=== PATIENT | female | born 1970 | race Caucasian/White ===

== ENCOUNTER 2018-12-22 13:30 | Emergency (ER) | payer SELFPAY ==
[~2018-12-22] VITALS: Ht 162.6 cm; Wt 84.4 kg
[2018-12-22 13:40] VITALS: BP 98/57
--- NOTE | 2018-12-22 13:50 | NUR ---
BIB SELF. AAOX 4 C/O GENERALIZED LOWER ABD PAIN X 1 DAY. DENIES N/V, FEVER, SOB, TRAUMA. PT DENIES TAKING OTC MEDS FOR PAIN. PT STATES THAT SHE HAS A HISTORY OF OVARY CYST. PT AMBULATED WITH STEADY GAIT. ER TO EVALUATE PT.
--- NOTE | 2018-12-22 14:01 | NUR ---
DR COHEN AT BEDSIDE FOR PT EVALUATION
--- NOTE | 2018-12-22 14:15 | NUR ---
TEST INSPECTION ENGINEER AT BEDSIDE.
[2018-12-22 14:43] LABS: APPEARANCE,URINE HAZY (CLEAR); BILIRUBIN,URINE NEGATIVE (NEGATIVE); BLOOD, URINE NEGATIVE (NEGATIVE); COLOR,URINE YELLOW (YELLOW); LEUKOCYTE ESTERASE ,URINE 1+ (NEGATIVE); NITRITE, URINE NEGATIVE (NEGATIVE); UGLUCOSE NEGATIVE (NEGATIVE)
[2018-12-22 14:52] LABS: RBC,URINE NONE SEEN /HPF (0-5); WBC,URINE 0-5 /HPF (0-5)
[2018-12-22 14:53] LABS: URIC ACID CRYSTALS,URINE 0-10 /HPF (None Seen)
--- NOTE | 2018-12-22 15:00 | NUR ---
PT LAYING DOWN. AAO X4, FULL CLEAR SPEECH. EVEN AND UNLABORED BREATHING ,NO SIGNS AND SYMPTOMS OF DISTRESS NOTED.
--- NOTE | 2018-12-22 16:00 | NUR ---
PT LAYING DOWN. AAO X4, FULL CLEAR SPEECH. EVEN AND UNLABORED BREATHING ,NO SIGNS AND SYMPTOMS OF DISTRESS NOTED.
[2018-12-22 16:40] VITALS: BP 104/64
--- NOTE | 2018-12-22 16:40 | NUR ---
Patient discharged with v/s stable. Written and verbal after care instructions given and explained. Patient alert, oriented and verbalized understanding of instructions. Ambulatory with steady gait. All questions addressed prior to discharge. ID band removed. Patient advised to follow up with PMD. Rx of IBUPROFEN 600 MG given. Patient educated on indication of medication including possible reaction and side effects. Opportunity to ask questions provided and answered.
== END 2018-12-22 16:40 | disposition home or self-care (01) ==
LOC: MED 13:30
DX: R10.31 Right lower quadrant pain (principal); Z87.42 Personal history of other diseases of the female genital tract
CPT/HCPCS: 74176; 76856; 81001; 81025; 82948; 87086; 93976; 99284; Q0092

== ENCOUNTER 2019-04-21 18:28 | Emergency (ER) | payer OTHER ==
[~2019-04-21] VITALS: Ht 162.6 cm; Wt 93.0 kg
[2019-04-21 18:42] VITALS: BP 132/76
--- NOTE | 2019-04-21 18:50 | NUR ---
PT AMBULATED TO ED BED 05
--- NOTE | 2019-04-21 19:03 | NUR ---
48 Y/O F C/O LEFT LEG CRAMPS X 3 DAYS. PT DENIES ANY FEVER/CHILLS/DIAHREA. PT STATES THIS HAS HAPPENED IN THE PAST, AND SHE WAS ADVISED TO DRINK MORE WATER. PT IS NOT IN PAIN AT THIS TIME. PT POSITIONED FOR COMFORT, BED LOWERED, SIDE RAIL X [address] SARAH
--- NOTE | 2019-04-21 19:19 | NUR ---
REPORT RECEIVED FROM EZIO GARCIA. ASSUMED CARE AT THIS TIME. PT SEATED UPRIGHT IN BED. BEDRAIL X1 UP. WILL CONTINUE TO MONITOR.
--- NOTE | 2019-04-21 19:19 | NUR ---
TRANSFER OF PT CARE TO EZIO GIBSON
[2019-04-21 19:48] LABS: BASOPHILS % (AUTO) 0.2 % (0.0-2.0); EOSINOPHILS # (AUTO) 0.1 K/uL (0-0.4); EOSINOPHILS % (AUTO) 1.6 % (0.0-4.0); HEMATOCRIT 39.2 % (36-48); HEMOGLOBIN 13.3 g/dL (12.0-16.0); LYMPHOCYTES # (AUTO) 3.1 K/uL (2.5-16.5); LYMPHOCYTES % (AUTO) 40.2 % (20.5-51.1); MEAN CORPUSCULAR HEMOGLOBIN 31 pg (27-31); MEAN CORPUSCULAR HGB CONC 34 g/dL (33-37); MEAN CORPUSCULAR VOLUME 90.9 fL (80-94); MONOCYTES # (AUTO) 0.5 K/uL (0.8-1.0); MONOCYTES % (AUTO) 5.8 % (1.7-9.3); NEUTROPHILS # (AUTO) 4.1 K/uL (1.8-7.7); NEUTROPHILS % (AUTO) 52.2 % (42.2-75.2); PLATELET COUNT (AUTO) 203 K/uL (140-450); RED BLOOD CELL COUNT(AUTO) 4.31 MIL/uL (4.20-5.40); RED CELL DISTRIBUTION WIDTH 13.5 % (11.6-13.7); WHITE BLOOD COUNT (AUTO) 7.8 K/uL (4.8-10.8)
[2019-04-21 20:02] LABS: ANION GAP 11.4 (8-16); CARBON DIOXIDE 29.3 mmol/L (21-32); CREATININE 0.6 mg/dL (0.6-1.3); POTASSIUM 3.7 mmol/L (3.5-5.1)
--- NOTE | 2019-04-21 20:15 | NUR ---
NEHEMIAH JOHNSON AT BEDSIDE EVAULTING PT.
[2019-04-21 20:37] VITALS: BP 132/76
--- NOTE | 2019-04-21 20:37 | NUR ---
Patient discharged with v/s stable. Written and verbal after care instructions given and explained. Patient alert, oriented and verbalized understanding of instructions. Ambulatory with steady gait. All questions addressed prior to discharge. ID band removed. Patient advised to follow up with PMD. Rx of B COMPLEX WITH VIT. C, AND IBUPROFEN WAS given. Patient educated on indication of medication including possible reaction and side effects. Opportunity to ask questions provided and answered. PT STATED HER PAIN DECREASED TO 3/10 AND HER LEG CRAMPING WAS MINIMAL PRIOR TO D/C
== END 2019-04-21 20:37 | disposition home or self-care (01) ==
LOC: MED 18:28
DX: M79.662 Pain in left lower leg (principal)
CPT/HCPCS: 36415; 80048; 82948; 85025; 99283

== ENCOUNTER 2019-12-29 20:06 | Emergency (ER) | payer OTHER ==
[~2019-12-29] VITALS: Ht 162.6 cm; Wt 94.3 kg
[2019-12-29 20:29] VITALS: BP 117/83
--- NOTE | 2019-12-29 20:29 | NUR ---
49 Y/O FEMALE PRESENTED TO ED C/O LT LOWER BACK PAIN X 3 HRS. PT STATES SHE WAS CLEANING HER ROOM AND LIFTED HER MATTRESS AND FELT LIKE SHE PULLED A MUSCLE IN HER BACK. PT RATES PAIN 8/10 , THROBBING SENSATION. NO OBSERVED REDNESS OR SWELLING ON LOWER BACK.PT HAS NOT TAKEN ANY MEDICATION AT THIS TIME FOR THE PAIN. PT DENIES N/V/D/FEVER/CP/SOB. PT RR EVEN AND UNLABORED, VSS. PT SECONDARY C/O OF LICE. PT STATES HER DAUGHTER RECENTLY HAS LICE AND SHE NOW BELIEVES SHE HAS IT. PT STATES LICER PAIN 10/10 ON PAIN SCALE. PT RESTING IN BED, LOCKED AND IN LOWEST POSITION , HOB ELEVATED, SIDE RAIL X2 FOR PT SAFETY. NO ACUTE DISTRESS NOTED AT THIS TIME. PMH: DEPRESSION NKA
--- NOTE | 2019-12-29 20:37 | NUR ---
PT TAKEN TO BED 9
--- NOTE | 2019-12-29 20:39 | NUR ---
Dr. Gaona examining patient.
[2019-12-29] MEDS ORDERED: KETOROLAC 60 MG/2 ML VIAL IM ONE (20:45)
--- NOTE | 2019-12-29 20:48 | NUR ---
PT TAKEN TO RADIOLOGY
--- NOTE | 2019-12-29 20:57 | NUR ---
PT RETURN FROM XRAY
[2019-12-29 21:40] VITALS: BP 117/83
--- NOTE | 2019-12-29 21:40 | NUR ---
Patient discharged with v/s stable. Written and verbal after care instructions given and explained. Patient alert, oriented and verbalized understanding of instructions. Ambulatory with steady gait. All questions addressed prior to discharge. ID band removed. Patient advised to follow up with PMD. Rx of motrin, permethrin given. Patient educated on indication of medication including possible reaction and side effects. Opportunity to ask questions provided and answered.
== END 2019-12-29 21:40 | disposition home or self-care (01) ==
LOC: MED 20:06
DX: S39.012A Strain of muscle, fascia and tendon of lower back, initial encounter (principal); B85.0 Pediculosis due to Pediculus humanus capitis; Z90.722 Acquired absence of ovaries, bilateral; X58.XXXA Exposure to other specified factors, initial encounter; Y93.89 Activity, other specified; Y92.89 Other specified places as the place of occurrence of the external cause; Y99.8 Other external cause status
CPT/HCPCS: 72100; 96372; 99283; J1885

== ENCOUNTER 2020-01-03 19:06 | Emergency (ER) | payer OTHER ==
[~2020-01-03] VITALS: Ht 162.6 cm; Wt 90.7 kg
[2020-01-03 19:10] VITALS: BP 111/74
--- NOTE | 2020-01-03 19:20 | NUR ---
PT AMBULATED TO ER BED 1
--- NOTE | 2020-01-03 19:29 | NUR ---
49 Y/O FEMALE PRESENTS TO ER WITH C/O LEFT FOOT CRAMPS X 1 DAY. 9/10 PAIN. PT STATES LEFT FOOT CRAMPING AT REST, OR WHILE SITTING. CRAMPS ARE ALLEVIATED WHEN SHE AMBULATES. ALSO STATES SHE HAS OCCASIONAL BILATERAL HAND CRAMPING. DENIES INJURY OR TRAUMA TO FOOT. DENIES NAUSEA, VOMITING, DIARRHEA, SOB, COUGH, FEVER. STATES SHE WAS COVID + LAST MONTH, BUT WAS RETESTED AND IS NOW NEGATIVE. DENIES TAKING MEDS BEFORE COMING TO ER. B, LMP X 4YRS AGO. NKDA PMH: DM
--- NOTE | 2020-01-03 19:35 | NUR ---
NEHEMIAH SOLIS WITH PT
[2020-01-03] MEDS ORDERED: NACL 0.9% 1,000 ML IV ONE (19:40)
[2020-01-03 20:00] LABS: BASOPHILS % (AUTO) 0.3 % (0.0-2.0); EOSINOPHILS # (AUTO) 0.2 K/uL (0-0.4); EOSINOPHILS % (AUTO) 2.4 % (0.0-4.0); HEMATOCRIT 38.9 % (36-48); LYMPHOCYTES # (AUTO) 3.2 K/uL (2.5-16.5); LYMPHOCYTES % (AUTO) 42.8 % (20.5-51.1); MEAN CORPUSCULAR HEMOGLOBIN 30 pg (27-31); MEAN CORPUSCULAR HGB CONC 34 g/dL (33-37); MEAN CORPUSCULAR VOLUME 89.2 fL (80-94); MONOCYTES # (AUTO) 0.5 K/uL (0.8-1.0); MONOCYTES % (AUTO) 7.1 % (1.7-9.3); NEUTROPHILS # (AUTO) 3.6 K/uL (1.8-7.7); NEUTROPHILS % (AUTO) 47.4 % (42.2-75.2); PLATELET COUNT (AUTO) 221 K/uL (140-450); RED BLOOD CELL COUNT(AUTO) 4.36 MIL/uL (4.20-5.40); RED CELL DISTRIBUTION WIDTH 14.3 % (11.6-13.7); WHITE BLOOD COUNT (AUTO) 7.6 K/uL (4.8-10.8)
[2020-01-03 20:14] LABS: ALBUMIN 3.9 g/dL (3.4-5.0); ANION GAP 13.6 (8-16); CARBON DIOXIDE 28.9 mmol/L (21-32); CREATININE 0.8 mg/dL (0.6-1.3); POTASSIUM 3.5 mmol/L (3.5-5.1); TOTAL BILIRUBIN 0.6 mg/dL (0.0-1.0)
--- NOTE | 2020-01-03 20:34 | NUR ---
Dr. Forrest examining patient.
[2020-01-03 20:40] VITALS: BP 111/74
== END 2020-01-03 20:40 | disposition home or self-care (01) ==
LOC: MED 19:06
DX: R25.2 Cramp and spasm (principal); M79.672 Pain in left foot; E11.9 Type 2 diabetes mellitus without complications
CPT/HCPCS: 36415; 80053; 85025; 96360; 99283; J7030

== ENCOUNTER 2020-01-17 20:29 | Emergency (ER) | payer OTHER ==
[~2020-01-17] VITALS: Ht 162.6 cm; Wt 94.8 kg
[2020-01-17 20:33] VITALS: BP 120/77
--- NOTE | 2020-01-17 20:38 | NUR ---
49 YO F BIB SELF FOR C/O SORE THROAT, DYSURIA X 3 DAYS. PT DENIES FEVER @ THIS TIME. PT AAOX4 DENIES COUGH/SOB. PT STATES SHE HAS URGENCY ALONG WITH PAINFUL URINATION 10/11. MIGUEL ANGEL LOCKED IN LOWEST POSITION. WILL UPDATE ERMD. HX: CHOLECYSTOMY, THYROID PROBELM LMP: X 3-4 YRS AGO AX: SARAH
--- NOTE | 2020-01-17 20:47 | NUR ---
Dr. Beltran examining patient.
[2020-01-17 22:00] VITALS: BP 117/83
--- NOTE | 2020-01-17 22:01 | NUR ---
Patient discharged with v/s stable. Written and verbal after care instructions given and explained. Patient alert, oriented and verbalized understanding of instructions. Ambulatory with steady gait. All questions addressed prior to discharge. ID band removed. Patient advised to follow up with PMD. Rx of NITROFURANTOIN given. Patient educated on indication of medication including possible reaction and side effects. Opportunity to ask questions provided and answered.
== END 2020-01-17 22:01 | disposition home or self-care (01) ==
LOC: MED 20:29
DX: S13.9XXA Sprain of joints and ligaments of unspecified parts of neck, initial encounter (principal); N30.00 Acute cystitis without hematuria; E11.9 Type 2 diabetes mellitus without complications; N83.209 Unspecified ovarian cyst, unspecified side; X58.XXXA Exposure to other specified factors, initial encounter; Y93.89 Activity, other specified; Y92.89 Other specified places as the place of occurrence of the external cause; Y99.8 Other external cause status
CPT/HCPCS: 81002; 81025; 99283

== ENCOUNTER 2021-01-16 21:00 | Emergency (ER) | payer OTHER ==
[~2021-01-16] VITALS: Ht 162.6 cm; Wt 90.7 kg
[2021-01-16 21:42] VITALS: BP 131/74
[2021-01-16] MEDS ORDERED: CYCL-711 PO (22:12)
[2021-01-16] MEDS ORDERED: ACET-10509 PO (22:12)
[2021-01-16] MEDS ORDERED: LID5T TP (22:12)
[2021-01-16] MEDS ORDERED: IBUP-2213 PO (22:12)
--- NOTE | 2021-01-16 22:26 | NUR ---
Patient discharged with v/s stable. Written and verbal after care instructions given and explained. Patient verbalized understanding. Ambulatory with steady gait. All questions addressed prior to discharge. Advised to follow up with PMD.
== END 2021-01-16 22:26 | disposition home or self-care (01) ==
LOC: MED 21:00
DX: S39.012A Strain of muscle, fascia and tendon of lower back, initial encounter (principal); E11.9 Type 2 diabetes mellitus without complications; X50.0XXA Overexertion from strenuous movement or load, initial encounter; Y93.89 Activity, other specified; Y92.89 Other specified places as the place of occurrence of the external cause; Y99.8 Other external cause status
CPT/HCPCS: 99283

== ENCOUNTER 2021-03-14 20:38 | Emergency (ER) | payer OTHER ==
[~2021-03-14] VITALS: Ht 162.6 cm; Wt 90.7 kg
[~2021-03-14 20:38] MED LIST: ACET-10509 PO; CYCL-711 PO; IBUP-2213 PO; LID5T TP
[2021-03-14 21:05] VITALS: BP 135/78
[2021-03-14] MEDS ORDERED: KETOROLAC 60 MG/2 ML VIAL IM ONE (22:35)
[2021-03-14] MEDS ORDERED: PANT40EC PO (22:36)
[2021-03-14] MEDS ORDERED: MELO7.5T11 PO (22:36)
== END 2021-03-15 00:07 | disposition home or self-care (01) ==
LOC: MED 20:38
DX: G89.29 Other chronic pain (principal); M54.2 Cervicalgia; Z79.899 Other long term (current) drug therapy
CPT/HCPCS: 96372; 99283; J1885

== ENCOUNTER 2021-04-01 20:52 | Emergency (ER) | payer SELFPAY ==
[~2021-04-01] VITALS: Ht 162.6 cm; Wt 98.0 kg
[~2021-04-01 20:52] MED LIST changes: +MELO7.5T11 PO; +PANT40EC PO
[2021-04-01 21:00] VITALS: BP 121/75
--- NOTE | 2021-04-01 21:03 | NUR ---
TO LOBBY A/W BED AMBULATORY
[2021-04-01 22:01] LABS: BASOPHILS % (AUTO) 0.4 % (0.0-2.0); EOSINOPHILS # (AUTO) 0.1 K/uL (0-0.4); EOSINOPHILS % (AUTO) 1.9 % (0.0-4.0); HEMATOCRIT 38.3 % (36-48); LYMPHOCYTES % (AUTO) 43.7 % (20.5-51.1); MEAN CORPUSCULAR HEMOGLOBIN 30 pg (27-31); MEAN CORPUSCULAR HGB CONC 34 g/dL (33-37); MEAN CORPUSCULAR VOLUME 88.5 fL (80-94); MONOCYTES # (AUTO) 0.5 K/uL (0.8-1.0); MONOCYTES % (AUTO) 6.9 % (1.7-9.3); NEUTROPHILS # (AUTO) 3.3 K/uL (1.8-7.7); NEUTROPHILS % (AUTO) 47.1 % (42.2-75.2); PLATELET COUNT (AUTO) 226 K/uL (140-450); RED BLOOD CELL COUNT(AUTO) 4.33 MIL/uL (4.20-5.40); RED CELL DISTRIBUTION WIDTH 13.2 % (11.6-13.7)
[2021-04-01 22:11] LABS: ALBUMIN 3.8 g/dL (3.4-5.0); CARBON DIOXIDE 27.6 mmol/L (21-32); CREATININE 0.7 mg/dL (0.6-1.3); POTASSIUM 3.6 mmol/L (3.5-5.1); TOTAL BILIRUBIN 0.3 mg/dL (0.0-1.0)
[2021-04-01] MEDS ORDERED: ALUMINUM HYD/MAG/SIMETHICONE 30 ML UDC PO ONE (22:35)
--- NOTE | 2021-04-01 23:40 | NUR ---
Marina hernandes in EDM - 04/01/21 at 2342 by JENNIFER 50 Y/O BIB SELF FOR MODERATE GI PAIN. PAIN RADIATES FROM THROAT UPPER ABDOMEN SINCE NOON TODAY. PT STATES SHE TOOK AN DIANNE SELTZER BUT HAS HAD NO RELIEF/
--- NOTE | 2021-04-01 23:42 | NUR ---
50 Y/O BIB SELF FOR MODERATE GI PAIN. PAIN RADIATES FROM THROAT UPPER ABDOMEN SINCE NOON TODAY. PT STATES SHE TOOK AN DIANNE SELTZER BUT HAS HAD NO RELIEF. PT STATES SHE HAS A HEADACHE FORM THE PAIN. PT IS COVID VACCINATED- MODERNA. PT DENIES COUGH/F/SOB/ VOMITING OR CHEST PAIN. PT HAS NO ALLERGIES . NO PREVIOUS MEDICAL HX.
[2021-04-01] MEDS ORDERED: ACET-10509 PO (23:50)
[2021-04-02 00:12] VITALS: BP 129/80
--- NOTE | 2021-04-02 00:16 | NUR ---
Patient discharged with v/s stable. Written and verbal after care instructions given and explained. Patient alert, oriented and verbalized understanding of instructions. Ambulatory with steady gait. All questions addressed prior to discharge. ID band removed. Patient advised to follow up with PMD. Rx of ACETAMINOPHEN EXTRA STRENGTH given. Opportunity to ask questions provided and answered.
--- NOTE | 2021-04-02 00:39 | NUR ---
The patient's care was reviewed and supervised by LILLIANA STONE RN.
[2021-04-03] MEDS ORDERED: [UNRECOGNIZED DRUG - CODE] PO (23:34)
[2021-04-03] MEDS ORDERED: LORA10TA19 PO (23:34)
[2021-04-03] MEDS ORDERED: ACET-10509 PO (23:35)
== END 2021-04-02 00:12 | disposition home or self-care (01) ==
LOC: MED 20:52
DX: R10.13 Epigastric pain (principal); F32.9 Major depressive disorder, single episode, unspecified; Z98.890 Other specified postprocedural states; Z79.899 Other long term (current) drug therapy
CPT/HCPCS: 36415; 80053; 81002; 81025; 83690; 84484; 85025; 93005; 99284

== ENCOUNTER 2021-04-03 22:07 | Emergency (ER) | payer SELFPAY ==
[~2021-04-03] VITALS: Ht 162.6 cm; Wt 90.7 kg
[2021-04-03 22:25] VITALS: BP 121/56
--- NOTE | 2021-04-03 22:28 | NUR ---
TO LOBBY A/W BED AMBULATORY
--- NOTE | 2021-04-03 23:15 | NUR ---
PT TAKEN TO BED #2
--- NOTE | 2021-04-03 23:31 | NUR ---
Dr. Lackey examining patient.
[2021-04-03] MEDS ORDERED: [UNRECOGNIZED DRUG - CODE] PO (23:34)
[2021-04-03] MEDS ORDERED: LORA10TA19 PO (23:34)
[2021-04-03] MEDS ORDERED: ACET-10509 PO (23:35)
--- NOTE | 2021-04-03 23:35 | NUR ---
PT REFUSED CHEST XR. DR. HAWKINS MADE AWARE.
--- NOTE | 2021-04-03 23:47 | NUR ---
Patient discharged with v/s stable. Written and verbal after care instructions given and explained. Patient alert, oriented and verbalized understanding of instructions. Ambulatory with steady gait. All questions addressed prior to discharge. ID band removed. Patient advised to follow up with PMD. Rx of ACETAMINOPHEN, IBUPROFEN, LORATADINE given. Patient educated on indication of medication including possible reaction and side effects. Opportunity to ask questions provided and answered.
[2021-04-03 23:50] VITALS: BP 121/56
--- NOTE | 2021-04-03 23:56 | NUR ---
The patient's care was reviewed and supervised by Rupinder Neely RN.
== END 2021-04-03 23:47 | disposition home or self-care (01) ==
LOC: MED 22:07
DX: R09.81 Nasal congestion (principal); J32.9 Chronic sinusitis, unspecified; E11.9 Type 2 diabetes mellitus without complications; Z79.899 Other long term (current) drug therapy
CPT/HCPCS: 99282

== ENCOUNTER 2021-05-03 06:03 | Emergency (ER) | payer SELFPAY ==
[~2021-05-03] VITALS: Ht 162.6 cm; Wt 90.7 kg
[~2021-05-03 06:03] MED LIST changes: +LORA10TA19 PO; +[UNRECOGNIZED DRUG - CODE] PO
[2021-05-03 06:15] VITALS: BP 121/70
--- NOTE | 2021-05-03 06:18 | NUR ---
TO LOBBY A/W BED AMBULATORY
[2021-05-03] MEDS ORDERED: ROB PO (07:08)
--- NOTE | 2021-05-03 07:10 | NUR ---
SWAB FOR NOVEL SENT TO LAB
--- NOTE | 2021-05-03 08:04 | NUR ---
PT CLEARED BY DR HAWKINS, PT LEFT WITHOUT D/C PAPERWORK. RX OF GUAIFENESIN GIVEN.
== END 2021-05-03 08:04 | disposition home or self-care (01) ==
LOC: MED 06:03
DX: R05.9 Cough, unspecified (principal); Z20.822 Contact with and (suspected) exposure to COVID-19; E11.9 Type 2 diabetes mellitus without complications; Z79.899 Other long term (current) drug therapy
CPT/HCPCS: 99283; U0003

== ENCOUNTER 2021-09-04 15:34 | Emergency (ER) | payer OTHER ==
[~2021-09-04] VITALS: Ht 162.6 cm; Wt 96.2 kg
[~2021-09-04 15:34] MED LIST changes: +ROB PO
[2021-09-04 15:49] VITALS: BP 112/77
--- NOTE | 2021-09-04 16:40 | NUR ---
PATIENT LEFT WITHOUT BEING SEEN BY DR. URENA. NO FURTHER CARE PROVIDED FOR PATIENT.
== END 2021-09-04 16:50 | disposition left against medical advice (07) ==
LOC: MED 15:34
DX: M54.50 Low back pain, unspecified (principal); Z53.21 Procedure and treatment not carried out due to patient leaving prior to being seen by health care provider

== ENCOUNTER 2021-09-16 21:14 | Emergency (ER) | payer MEDICAID, OTHER ==
[~2021-09-16] VITALS: Ht 162.6 cm; Wt 96.2 kg
[2021-09-16 21:37] VITALS: BP 120/75
--- NOTE | 2021-09-16 21:43 | NUR ---
PATIENT TO LOBBY
--- NOTE | 2021-09-16 22:08 | NUR ---
PT TO BED 3 AMBULATORY
[2021-09-16] MEDS ORDERED: KETOROLAC 60 MG/2 ML VIAL IM ONE (22:35)
[2021-09-16 22:41] LABS: APPEARANCE,URINE CLEAR (CLEAR); BILIRUBIN,URINE NEGATIVE (NEGATIVE); BLOOD, URINE NEGATIVE (NEGATIVE); COLOR,URINE YELLOW (YELLOW); LEUKOCYTE ESTERASE ,URINE TRACE (NEGATIVE); NITRITE, URINE NEGATIVE (NEGATIVE); UGLUCOSE NEGATIVE (NEGATIVE)
--- NOTE | 2021-09-16 22:45 | NUR ---
51 Y.O. F BIB SELF C/O LEFT SIDE PAIN X1 HR AGO. DENIES TAKING MEDICATION. DENIES DIFF BREATHING OR SOB WHEN INHALING & EXHALING. NO PAIN OF ANYWHERE ELSE. PT RESTING IN BED. PMH: DENIES NKA
[2021-09-16 22:54] LABS: RBC,URINE 0-5 /HPF (0-5)
--- NOTE | 2021-09-16 23:11 | NUR ---
PATIENT RESTING IN BED COMFORTABLY. RESP EVEN AND UNLABORED. SIDE RAIL UP X1
[2021-09-16] MEDS ORDERED: cefTRIAXone 1,000 MG in LIDOCAINE MPF 1% 2.1 ML IM ONE (23:30)
[2021-09-16] MEDS ORDERED: cefTRIAXone 1,000 MG VIAL ONE ×2 (23:41→23:42)
[2021-09-16] MEDS ORDERED: LIDOCAINE MPF 1% 5 ML ONE (23:57)
[2021-09-17] MEDS ORDERED: NAPR-54 PO (00:06)
[2021-09-17] MEDS ORDERED: NITR100C7 PO (00:06)
--- NOTE | 2021-09-17 00:08 | NUR ---
DR CROCKETT AT BEDSIDE DC PAPERWORK AND AFTER CARE INSTRUCTIONS .
[2021-09-17 00:10] VITALS: BP 120/75
--- NOTE | 2021-09-17 00:10 | NUR ---
Patient discharged with v/s stable. Written and verbal after care instructions given and explained. Patient alert, oriented and verbalized understanding of instructions. Ambulatory with steady gait. All questions addressed prior to discharge. ID band removed. Patient advised to follow up with PMD. Rx of NAPROXEN MACROBID given. Patient educated on indication of medication including possible reaction and side effects. Opportunity to ask questions provided and answered.
== END 2021-09-17 00:10 | disposition home or self-care (01) ==
LOC: MED 21:14
DX: N12 Tubulo-interstitial nephritis, not specified as acute or chronic (principal); E11.9 Type 2 diabetes mellitus without complications; Z98.51 Tubal ligation status; Z79.899 Other long term (current) drug therapy; Z79.1 Long term (current) use of non-steroidal anti-inflammatories (NSAID); Z79.2 Long term (current) use of antibiotics
CPT/HCPCS: 81001; 87086; 96372; 99284; J0696; J1885; J2001

== ENCOUNTER 2021-09-23 20:25 | Emergency (ER) | payer MEDICAID ==
[~2021-09-23] VITALS: Ht 162.6 cm; Wt 97.2 kg
[~2021-09-23 20:25] MED LIST changes: +NAPR-54 PO; +NITR100C7 PO
[2021-09-23 20:49] VITALS: BP 131/72
--- NOTE | 2021-09-23 20:52 | NUR ---
PT TAKEN TO LOBBY.
--- NOTE | 2021-09-23 22:25 | NUR ---
Patient ambulated to bed 9.
--- NOTE | 2021-09-23 23:07 | NUR ---
35 YO/F PRESENTS TO ED W C/O FEELING TIRED, WORN OUT, BONE PAIN "BUT NOT THAT MUCH" X1 DAY AFTER WALKING AROUND AND HEADACHE 6/10 PRESSURE NON-RAD CONSTANT SINCE 1000, + DIARRHEA, + NAUSEA. PT ADDS FEELING STRESSED LATELY AND BELIEVES THE STRESS OR HER VITAMIN D LEVELS MAY BE CAUSING THE SYMPTOMS. PT DENIES ANY CHEST PAIN, SOB, BLURRY VISION, DIZZYNESS, FEVERS, CHILLS, VOMITING OR BLOOD IN STOOL. PT TOOK IBUPROFEN 200 AT 1300 W SOME RELIEF. BREATHING EVEN AND UNLABORED, WILL CONTINUE TO MONITOR. PMH: PRE-DIABETES ALLERHIES: DENIES
--- NOTE | 2021-09-23 23:11 | NUR ---
Dr. Marks examming patient.
--- NOTE | 2021-09-23 23:30 | NUR ---
ADMINISTERED PO MEDICATIONS PER MD ORDER. TOLERATED WELL.
[2021-09-23] MEDS: ACETAMINOPHEN EXTRA STRENGTH 500 MG TAB PO ONE (23:31)
[2021-09-23] MEDS: IBUPROFEN 400 MG TAB PO ONE (23:31)
[2021-09-23] MEDS: ONDANSETRON 4 MG ODT PO ONE (23:32)
[2021-09-23 23:40] LABS: BASOPHILS # (AUTO) 0.1 K/uL (0.00-0.22); BASOPHILS % (AUTO) 0.7 % (0.0-2.0); EOSINOPHILS # (AUTO) 0.2 K/uL (0-0.4); EOSINOPHILS % (AUTO) 1.9 % (0.0-4.0); HEMATOCRIT 39.4 % (36-48); HEMOGLOBIN 13.5 g/dL (12.0-16.0); LYMPHOCYTES # (AUTO) 3.4 K/uL (2.5-16.5); LYMPHOCYTES % (AUTO) 41.8 % (20.5-51.1); MEAN CORPUSCULAR HEMOGLOBIN 30 pg (27-31); MEAN CORPUSCULAR HGB CONC 34 g/dL (33-37); MEAN CORPUSCULAR VOLUME 87.8 fL (80-94); MONOCYTES # (AUTO) 0.5 K/uL (0.8-1.0); MONOCYTES % (AUTO) 6.7 % (1.7-9.3); NEUTROPHILS # (AUTO) 3.9 K/uL (1.8-7.7); NEUTROPHILS % (AUTO) 48.9 % (42.2-75.2); PLATELET COUNT (AUTO) 211 K/uL (140-450); RED BLOOD CELL COUNT(AUTO) 4.49 MIL/uL (4.20-5.40); RED CELL DISTRIBUTION WIDTH 13.7 % (11.6-13.7)
--- NOTE | 2021-09-23 23:42 | NUR ---
PT AMBULATORY TO BATHROOM W STEADY GAIT.
[2021-09-23 23:47] LABS: ANION GAP 9.9 (8-16); CARBON DIOXIDE 29.4 mmol/L (21-32); CREATININE 0.7 mg/dL (0.6-1.3); POTASSIUM 4.3 mmol/L (3.5-5.1)
[2021-09-24] MEDS ORDERED: ONDA-188 SL (00:10)
[2021-09-24] MEDS ORDERED: [UNRECOGNIZED DRUG - CODE] PO (00:10)
[2021-09-24 00:30] VITALS: BP 109/67
--- NOTE | 2021-09-24 00:30 | NUR ---
Patient discharged with v/s stable. Verbal after care instructions given and explained. Patient alert, oriented and verbalized understanding of instructions. Ambulatory with steady gait. All questions addressed prior to discharge. ID band removed. Patient advised to follow up with PMD. Rx of vitamin d3, zofran given. Patient educated on indication of medication including possible reaction and side effects. Opportunity to ask questions provided and answered.PT left w/o discharge paperwork.
== END 2021-09-24 00:30 | disposition home or self-care (01) ==
LOC: MED 20:25
DX: B34.9 Viral infection, unspecified (principal); E11.9 Type 2 diabetes mellitus without complications; Z79.899 Other long term (current) drug therapy
CPT/HCPCS: 36415; 80048; 81002; 85025; 99284; Q0162

== ENCOUNTER 2021-10-23 17:59 | Emergency (ER) | payer MEDICAID ==
[~2021-10-23] VITALS: Ht 162.6 cm; Wt 94.8 kg
[~2021-10-23 17:59] MED LIST changes: +ONDA-188 SL; +[UNRECOGNIZED DRUG - CODE] PO
[2021-10-23 18:25] VITALS: BP 122/75
--- NOTE | 2021-10-23 19:16 | NUR ---
NEHEMIAH SOLIS explain treatment plans.
[2021-10-23] MEDS ORDERED: IBUP-1842 PO (19:22)
[2021-10-23] MEDS ORDERED: AMOX-999 PO (19:22)
[2021-10-23 19:53] VITALS: BP 120/72
--- NOTE | 2021-10-23 19:53 | NUR ---
Patient discharged with v/s stable. Written and verbal after care instructions given and explained for Animal bite. Patient alert, oriented and verbalized understanding of instructions. Ambulatory with steady gait. All questions addressed prior to discharge. ID band removed. Patient advised to follow up with PMD. Rx of Augmentin and Motrin given. Patient educated on indication of medication including possible reaction and side effects. Opportunity to ask questions provided and answered.
== END 2021-10-23 19:53 | disposition home or self-care (01) ==
LOC: MED 17:59
DX: S61.251A Open bite of left index finger without damage to nail, initial encounter (principal); X58.XXXA Exposure to other specified factors, initial encounter; Y93.89 Activity, other specified; Y92.89 Other specified places as the place of occurrence of the external cause; Y99.8 Other external cause status
CPT/HCPCS: 73130; 90471; 90715; 99283

== ENCOUNTER 2021-12-02 19:49 | Emergency (ER) | payer SELFPAY ==
[~2021-12-02] VITALS: Ht 162.6 cm; Wt 94.8 kg
[~2021-12-02 19:49] MED LIST changes: +AMOX-999 PO; +IBUP-1842 PO
[2021-12-02 20:24] VITALS: BP 128/75
--- NOTE | 2021-12-02 20:30 | NUR ---
seen and examined by LUDMILA
[2021-12-02] MEDS ORDERED: ESCI10TA PO (21:31)
--- NOTE | 2021-12-02 21:40 | NUR ---
Patient discharged with v/s stable. Written and verbal after care instructions given and explained by . Patient alert, oriented and verbalized understanding of instructions. Ambulatory with steady gait. All questions addressed prior to discharge. ID band removed. Patient advised to follow up with PMD. Rx of lexapro, given. Patient educated on indication of medication including possible reaction and side effects. Opportunity to ask questions provided and answered.
== END 2021-12-02 21:40 | disposition home or self-care (01) ==
LOC: MED 19:49
DX: F32.9 Major depressive disorder, single episode, unspecified (principal); Z79.899 Other long term (current) drug therapy; Z90.49 Acquired absence of other specified parts of digestive tract; Z98.890 Other specified postprocedural states
CPT/HCPCS: 99283

== ENCOUNTER 2022-06-26 11:42 | Emergency (ER) | payer SELFPAY ==
[~2022-06-26] VITALS: Ht 160 cm; Wt 96.2 kg
[~2022-06-26 11:42] MED LIST changes: +ESCI10TA PO
[2022-06-26 12:18] VITALS: BP 130/69
[2022-06-26] MEDS ORDERED: PROM118S5 PO (13:14)
[2022-06-26] MEDS ORDERED: NAPR-54 PO (13:14)
== END 2022-06-26 13:38 | disposition home or self-care (01) ==
LOC: MED 11:42
DX: U07.1 COVID-19 (principal); Z79.899 Other long term (current) drug therapy
CPT/HCPCS: 99283

== ENCOUNTER 2023-09-07 20:58 | Emergency (ER) | payer OTHER ==
[~2023-09-07] VITALS: Ht 162.6 cm; Wt 98.4 kg
[~2023-09-07 20:58] MED LIST changes: +NAPR-337 PO; -NAPR-54 PO; +PROM118S5 PO
[2023-09-07 21:21] VITALS: BP 128/88; PULSE 65; RESP 18; TEMP 97.2; O2SAT 100
[2023-09-07 21:53] LABS: APPEARANCE,URINE CLEAR (CLEAR); BILIRUBIN,URINE NEGATIVE (NEGATIVE); BLOOD, URINE NEGATIVE (NEGATIVE); COLOR,URINE YELLOW (YELLOW); LEUKOCYTE ESTERASE ,URINE NEGATIVE (NEGATIVE); NITRITE, URINE NEGATIVE (NEGATIVE); PROTEIN,URINE NEGATIVE (NEGATIVE); UGLUCOSE NEGATIVE (NEGATIVE); UROBILINOGEN,URINE 0.2 EU/dL (0.2 - 1)
[2023-09-07 22:10] LABS: BASOPHILS % (AUTO) 0.5 % (0.0-2.0); EOSINOPHILS # (AUTO) 0.3 K/uL (0-0.4); EOSINOPHILS % (AUTO) 3.3 % (0.0-4.0); HEMATOCRIT 37.9 % (36-48); HEMOGLOBIN 13.1 g/dL (12.0-16.0); LYMPHOCYTES # (AUTO) 4.1 K/uL (2.5-16.5); LYMPHOCYTES % (AUTO) 43.4 % (20.5-51.1); MEAN CORPUSCULAR HEMOGLOBIN 31 pg (27-31); MEAN CORPUSCULAR HGB CONC 35 g/dL (33-37); MEAN CORPUSCULAR VOLUME 88.9 fL (80-94); MONOCYTES # (AUTO) 0.7 K/uL (0.8-1.0); MONOCYTES % (AUTO) 7.5 % (1.7-9.3); NEUTROPHILS # (AUTO) 4.2 K/uL (1.8-7.7); NEUTROPHILS % (AUTO) 45.3 % (42.2-75.2); PLATELET COUNT (AUTO) 239 K/uL (140-450); RED BLOOD CELL COUNT(AUTO) 4.26 MIL/uL (4.20-5.40); RED CELL DISTRIBUTION WIDTH 13.9 % (11.6-13.7); WHITE BLOOD COUNT (AUTO) 9.4 K/uL (4.8-10.8)
[2023-09-07 22:17] LABS: ANION GAP 13.7 (8-16); CALCIUM 8.8 mg/dL (8.5-10.1); CARBON DIOXIDE 27.9 mmol/L (21-32); CREATININE 0.7 mg/dL (0.6-1.3); POTASSIUM 3.6 mmol/L (3.5-5.1)
[2023-09-07 22:19] VITALS: BP 126/86; PULSE 65; RESP 18; TEMP 97.2; O2SAT 100
[2023-09-07 22:31] LABS: ALBUMIN 3.7 g/dL (3.4-5.0); BILIRUBIN,DIRECT 0.1 mg/dL (0.0-0.3); TOTAL BILIRUBIN 0.3 mg/dL (0.0-1.0); TOTAL PROTEIN, SERUM 7.2 g/dL (6.4-8.2)
[2023-09-07] MEDS ORDERED: ESOM20EC PO (23:51)
[2023-09-07] MEDS ORDERED: METR-435 PO (23:51)
== END 2023-09-07 23:58 | disposition home or self-care (01) ==
LOC: MED 20:58
DX: A09 Infectious gastroenteritis and colitis, unspecified (principal); K21.9 Gastro-esophageal reflux disease without esophagitis; Z79.899 Other long term (current) drug therapy
CPT/HCPCS: 36415; 80048; 80076; 81003; 83690; 85025; 99283

== ENCOUNTER 2023-10-02 20:44 | Emergency (ER) | payer MEDICAID, OTHER ==
[~2023-10-02] VITALS: Ht 162.6 cm; Wt 100.7 kg
[~2023-10-02 20:44] MED LIST changes: +ESOM20EC PO; +METR-435 PO
[2023-10-02 21:19] VITALS: BP 122/76; PULSE 73; RESP 20; TEMP 97.3; O2SAT 98
[2023-10-02 22:10] LABS: BASOPHILS % (AUTO) 0.4 % (0.0-2.0); EOSINOPHILS # (AUTO) 0.2 K/uL (0-0.4); EOSINOPHILS % (AUTO) 1.9 % (0.0-4.0); HEMATOCRIT 37.9 % (36-48); HEMOGLOBIN 13.1 g/dL (12.0-16.0); LYMPHOCYTES # (AUTO) 3.9 K/uL (2.5-16.5); LYMPHOCYTES % (AUTO) 43.6 % (20.5-51.1); MEAN CORPUSCULAR HEMOGLOBIN 31 pg (27-31); MEAN CORPUSCULAR HGB CONC 35 g/dL (33-37); MEAN CORPUSCULAR VOLUME 89.7 fL (80-94); MONOCYTES # (AUTO) 0.7 K/uL (0.8-1.0); MONOCYTES % (AUTO) 7.3 % (1.7-9.3); NEUTROPHILS # (AUTO) 4.2 K/uL (1.8-7.7); NEUTROPHILS % (AUTO) 46.8 % (42.2-75.2); PLATELET COUNT (AUTO) 214 K/uL (140-450); RED BLOOD CELL COUNT(AUTO) 4.23 MIL/uL (4.20-5.40); RED CELL DISTRIBUTION WIDTH 13.9 % (11.6-13.7)
[2023-10-02 22:28] LABS: ANION GAP 10.8 (8-16); CARBON DIOXIDE 26.7 mmol/L (21-32); CREATININE 0.7 mg/dL (0.6-1.3); POTASSIUM 3.5 mmol/L (3.5-5.1)
[2023-10-03 00:36] VITALS: BP 122/76; PULSE 73; RESP 20; TEMP 97.3; O2SAT 98
[2023-10-03 00:36] LABS: ALBUMIN 3.9 g/dL (3.4-5.0); BILIRUBIN,DIRECT 0.1 mg/dL (0.0-0.3); TOTAL BILIRUBIN 0.3 mg/dL (0.0-1.0); TOTAL PROTEIN, SERUM 7.5 g/dL (6.4-8.2)
== END 2023-10-03 00:36 | disposition left against medical advice (07) ==
LOC: MED 20:44
DX: R10.13 Epigastric pain (principal); Z53.21 Procedure and treatment not carried out due to patient leaving prior to being seen by health care provider
CPT/HCPCS: 36415; 80048; 80076; 83690; 85025